=== PATIENT | female | born 1975 | race Caucasian/White ===

== ENCOUNTER 2023-01-13 09:40 | Inpatient (IN) | payer OTHER ==
[~2023-01-13] VITALS: Ht 171 cm; Wt 77.6 kg
[2023-01-13 10:31] LABS: BASOPHILS % (AUTO) 0.6 % (0.0-2.0); EOSINOPHILS # (AUTO) 0.1 K/uL (0-0.4); EOSINOPHILS % (AUTO) 1.8 % (0.0-4.0); HEMATOCRIT 41.3 % (36-48); HEMOGLOBIN 13.8 g/dL (12.0-16.0); LYMPHOCYTES # (AUTO) 1.4 K/uL (2.5-16.5); LYMPHOCYTES % (AUTO) 35.6 % (20.5-51.1); MEAN CORPUSCULAR HEMOGLOBIN 33 pg (27-31); MEAN CORPUSCULAR HGB CONC 33 g/dL (33-37); MEAN CORPUSCULAR VOLUME 97.9 fL (80-94); MONOCYTES # (AUTO) 0.3 K/uL (0.8-1.0); MONOCYTES % (AUTO) 7.6 % (1.7-9.3); NEUTROPHILS # (AUTO) 2.1 K/uL (1.8-7.7); NEUTROPHILS % (AUTO) 54.4 % (42.2-75.2); PLATELET COUNT (AUTO) 195 K/uL (140-450); RED BLOOD CELL COUNT(AUTO) 4.22 MIL/uL (4.20-5.40); RED CELL DISTRIBUTION WIDTH 13.2 % (11.6-13.7); WHITE BLOOD COUNT (AUTO) 3.8 K/uL (4.8-10.8)
[2023-01-13 10:49] LABS: ALBUMIN 4.2 g/dL (3.4-5.0); ANION GAP 9.2 (8-16); CARBON DIOXIDE 29.6 mmol/L (21-32); CREATININE 0.7 mg/dL (0.6-1.3); POTASSIUM 3.8 mmol/L (3.5-5.1); TOTAL BILIRUBIN 1.5 mg/dL (0.0-1.0)
[2023-01-13] MEDS ORDERED: diphenhydrAMINE 50 MG/ML VIAL IVP PRN ×2 (11:35→14:25)
[2023-01-13] MEDS ORDERED: LACTATED RINGERS 1,000 ML IV SCH (11:35)
[2023-01-13] MEDS ORDERED: ONDANSETRON 4 MG/2 ML VIAL IVP PRN ×2 (11:35→14:25)
[2023-01-13] MEDS ORDERED: MEPERIDINE 25 MG/ML SYR IVP PRN (11:35)
[2023-01-13] MEDS ORDERED: fentaNYL citrate 0.05 MG/ML VIAL ONE (11:39)
[2023-01-13] MEDS ORDERED: PROPOFOL 200 MG/20 ML VIAL IV ONE ×2 (11:39→12:00)
[2023-01-13] MEDS ORDERED: SUCCINYLCHOLINE CHLORIDE 200 MG/10 ML VIAL IVP ONE (11:39)
[2023-01-13] MEDS ORDERED: LIDOCAINE 1% 500 MG/50 ML VIAL ONE (11:44)
[2023-01-13] MEDS ORDERED: fentaNYL citrate 0.05 MG/ML - 50mL vial IV ONE (12:00)
[2023-01-13] MEDS ORDERED: MEPERIDINE 50 MG/ML SYR ONE ×2 (12:00→13:22)
[2023-01-13] MEDS ORDERED: ROCURONIUM 50 MG/5 ML VIAL IV ONE ×2 (12:00→12:34)
[2023-01-13] MEDS ORDERED: ceFAZolin 2,000 MG VIAL ONE (12:00)
[2023-01-13] MEDS ORDERED: METOCLOPRAMIDE 10 MG/2 ML INJ VIAL ONE (12:00)
[2023-01-13] MEDS ORDERED: SEVOFLURANE 250 ML BTL INH ONE (12:00)
[2023-01-13] MEDS ORDERED: SUGAMMADEX SODIUM 200 MG/2 ML VIAL IV ONE ×2 (12:00→14:08)
[2023-01-13] MEDS ORDERED: ONDANSETRON 4 MG/2 ML VIAL ONE (12:33)
[2023-01-13] MEDS ORDERED: MEPERIDINE 25 MG/ML SYR ONE (14:10)
[2023-01-13 15:42] VITALS: BP 121/70
--- NOTE | 2023-01-13 15:42 | NUR ---
PT ARRIVED TO [facility] VIA GURNEY. PT IS AOX4, ABLE TO VERBALIZE NEEDS. SKIN WARM AND DRY TO TOUCH. RESPIRATIONS EVEN AND UNLABORED ON RA. IV ON R HAND 20G INTACT AND PATENT. MARTE IN PLACE DRAINING TO GRAVITY. V/S TEMP 97.1, PULSE65, BP 121/70, RESPIRATIONS 16, O2 SATURATING AT 100%. CALL LIGHT WITHIN REACH, ALL SAFETY PRECAUTIONS IN PLACE.
--- NOTE | 2023-01-13 18:00 | NUR ---
REMOVED MARTE CATH.
--- NOTE | 2023-01-13 19:28 | NUR ---
ENDORSED PT TO BRICKLAYER APPRENTICE NURSE FOR CONTINUITY OF CARE. ALL NEEDS MET THROUGHOUT SHIFT. PT IN STABLE CONDITION.
[2023-01-13 20:00] VITALS: BP 110/60
--- NOTE | 2023-01-13 20:01 | NUR ---
RECEIVED REPORT FROM JANEL HIDALGO, PATIENT WAS STABLE DURING SHIFT REPORT. PATIENT WAS ALERT AND ORIENTED X 3. PATIENT STATED NAUSEA AND MILD DISCOMFORT. COVERING RN WAS NOTIFIED OF THE NEED FOR IV PUSH. PATIENT IS ON ROOM AIR. NO NOTED RESPIRATORY DISTRESS. CHEST IS RISING AND FALLING WITHOUT INCIDENT. CALL LIGHT IN REACH. [email or web address]
[2023-01-13] MEDS: HYDROmorphone 1 MG/ML AMP IVP PRN (21:38)
[2023-01-13] MEDS ORDERED: CYCLOBENZAPRINE 10 MG TAB PO SCH (23:05)
--- NOTE | 2023-01-13 23:27 | NUR ---
[id number] WAS GIVEN PAIN MANAGE MENT FOR THE ABDOMINAL PAIN BUT THEN COMPLAINED OF PAIN IN HER RIGHT LEG. MD WAS INFORMED AND GAVE ORDERS TO STOP IV FLUIDS AND GIVE MUSCLE RELAXER FOR THE LEG PAIN. [email or web address]
--- NOTE | 2023-01-14 01:18 | NUR ---
PAIN TO LEG HAS RESIDED. PATIENT IS IN HER BED RESTING WITHOUT PAIN. CALL LIGHT WITHIN REACH FOR ASSISTANCE. [email or web address]
[2023-01-14 04:00] VITALS: BP 97/52
--- NOTE | 2023-01-14 07:08 | NUR ---
ENDORSED PATIENT TO RUBINA RN (REGISTRY), PATIENT WAS STABLE AT THIS TIME. [email or web address]
--- NOTE | 2023-01-14 07:24 | NUR ---
receive the patient from the shift manager rn in rm 120A admitting diagnosis of hysterectomy aox4 . will continue to monitor
[2023-01-14] MEDS: HYDROmorphone 1 MG/ML AMP IVP PRN (08:54)
--- NOTE | 2023-01-14 09:30 | NUR ---
dilaudid was given due to abdominal pain from hysterectomy radiating to the right leg . will continue to monitor
--- NOTE | 2023-01-14 12:00 | NUR ---
patient was transfer admitted from being outpatient by md martinez . due to abdominal pain radiating to her right leg
--- NOTE | 2023-01-14 18:23 | NUR ---
will endorse to aparna carroll rn for continuity of care
--- NOTE | 2023-01-14 19:20 | NUR ---
PATIENT IN BED RESTING ON ROOM AIR. NO SOB NOTED. NO COMPLAINTS OF PAIN AT THIS TIME. IV SITE ON THE RIGHT HAND SALINE LOCK. CALL LIGHT IN REACH. SAFETY MEASURES IN PLACE.
[2023-01-14] MEDS: oxyCODONE/APAP 5/325 MG 1 TAB TAB PO PRN (21:29)
--- NOTE | 2023-01-14 21:29 | NUR ---
COMPLAINED OF SEVERE PAIN ON THE RIGHT LEG. MEDICATED.
--- NOTE | 2023-01-14 23:20 | NUR ---
PATIENT SLEEPING. NO S/S OF RESPIRATORY DISTRESS.
[2023-01-15] VITALS: BP 107/61
--- NOTE | 2023-01-15 07:25 | NUR ---
ENDORSED PATIENT TO DAY SHIFT NURSE FOR CONTINUITY OF CARE.
--- NOTE | 2023-01-15 07:26 | NUR ---
RECEIVED PT FROM PACKAGING SALES REPRESENTATIVE NURSE FOR CONTINUITY OF CARE. PT IN BED AWAKE AND ALERT X4. ABLE TO VERBALIZE NEEDS. RESPIRATIONS EVEN AND UNLABORED, NO DISTRESS NOTED. SKIN WARM AND DRY TO TOUCH. IV ON R HAND 20G SALINE LOCK. CALL LIGHT WITHIN REACH. ALL SAFETY PRECAUTIONS IN PLACE.
[2023-01-15 08:00] VITALS: BP 108/65
--- NOTE | 2023-01-15 08:42 | NUR ---
PT C/O PAIN 6/10 ON RIGHT LEG, ASSISTED PT WITH REPOSITION. PT MEDICATED.
[2023-01-15] MEDS: oxyCODONE/APAP 5/325 MG 1 TAB TAB PO PRN ×2 (08:43→16:43)
--- NOTE | 2023-01-15 08:49 | NUR ---
PATIENT HAS BEEN SCREENED AND CATEGORIZED MODERATE NUTRITION RISK. PATIENT WILL BE SEEN WITHIN 3-5 DAYS OF ADMISSION. 01/13/23-01/18/[address]
--- NOTE | 2023-01-15 11:15 | NUR ---
PT C/O PAIN ON R LEG STATES NO LASTING RELIEF FROM MEDICATION. INFORMED DR HERNADEZ, AWAITING RESPONSE.
--- NOTE | 2023-01-15 13:27 | NUR ---
PER DR HERNADEZ HE WILL BE SEEING PT TODAY.
[2023-01-15] MEDS: ENOXAPARIN 40 MG/0.4 ML SYR SUBQ SCH ×2 (14:16→21:00)
--- NOTE | 2023-01-15 14:16 | NUR ---
ADMINISTERED SCHEDULED LOVENOX. PT TOLERATED WELL.
--- NOTE | 2023-01-15 14:52 | NUR ---
PT AMBULATING NORMAL GAIT NOTED. PT WALKING WITH DAUGHTER AROUND UNIT.
[2023-01-15 16:00] VITALS: BP 114/70
--- NOTE | 2023-01-15 16:43 | NUR ---
PT C/O PAIN 6/10 ON R LEG. ADMINISTERED PAIN MED.
--- NOTE | 2023-01-15 17:43 | NUR ---
PAIN REASSESSED, PT STATES PAIN IS TOLERABLE AND MEDICATION HELPED.
--- NOTE | 2023-01-15 19:28 | NUR ---
ENDORSED PT TO PUTTY REMOVER NURSE FOR CONTINUITY OF CARE. PT IN STABLE CONDITION.
--- NOTE | 2023-01-15 21:00 | NUR ---
ADMINISTERED SCHEDULED MEDICATION.
[2023-01-16] VITALS: BP 114/69
[2023-01-16] MEDS: oxyCODONE/APAP 5/325 MG 1 TAB TAB PO PRN ×3 (02:11→16:51)
--- NOTE | 2023-01-16 06:04 | NUR ---
PATIENT AWAKE ALERT AND ORIENTED. ON ROOM AIR. AMBULATORY. NO SOB NOTED. NO COMPLAINTS OF PAIN AT THIS TIME. CALL LIGHT WITHIN REACH. WILL ENDORSE TO MORNING SHIFT FOR CONTINUITY OF CARE. PT IN STABLE CONDITION.
--- NOTE | 2023-01-16 07:15 | NUR ---
GAVE REPORT TO DAY SHIFT NURSE FOR CONTINUITY OF CARE. PATIENT IN STABLE CONDITION.
[2023-01-16 08:00] VITALS: BP 122/76
[2023-01-16] MEDS: ENOXAPARIN 40 MG/0.4 ML SYR SUBQ SCH ×2 (08:50→08:53)
--- NOTE | 2023-01-16 08:53 | NUR ---
PT REFUSED SCHEDULED LOVENOX STATES SHE WILL WAIT TO DISCUSS WITH DR. HUMPHREYS PT TEACHING, RISKS/BENEFITS. PT REFUSED.
[2023-01-16 16:00] VITALS: BP 119/71
[2023-01-16 18:42] VITALS: BP 119/71
--- NOTE | 2023-01-16 19:00 | NUR ---
PT WAS DISCHARGED PER DR HERNADEZ ORDERS. INFORMED PT TO FOLLOW UP WITH DR HERNADEZ. DC PACKET REVIEWED. PT VERBALIZED UNDERSTANDING. PT WHEELED [facility]. AMBULATED TO SIDE WALK AND GOT IN VEHICLE. PT IN STABLE CONDITION. DC TO HOME.
== END 2023-01-16 18:18 | disposition home or self-care (01) | DRG 519 ==
LOC: MDS 09:40 → MMU 09:42 → EDSTATUS 11:30 → MTU 16:21 → MDS 16:22 → MTU 01-16 19:00 → MDS 01-16 19:00
PROVIDERS: ADMIT Obstetrics & Gynecology; ATTEND Obstetrics & Gynecology
PROC: 0TSD4ZZ Reposition Urethra, Percutaneous Endoscopic Approach (ICD-10-PCS; 2023-01-13)
PROC: 0UT94ZZ Resection of Uterus, Percutaneous Endoscopic Approach (ICD-10-PCS; 2023-01-13)
PROC: 0UT74ZZ Resection of Bilateral Fallopian Tubes, Percutaneous Endoscopic Approach (ICD-10-PCS; principal; 2023-01-13 11:30)
DX: D25.1 Intramural leiomyoma of uterus (principal); D64.9 Anemia, unspecified; N95.1 Menopausal and female climacteric states; N39.3 Stress incontinence (female) (male); N81.11 Cystocele, midline; N36.41 Hypermobility of urethra; N92.0 Excessive and frequent menstruation with regular cycle; E03.9 Hypothyroidism, unspecified; N95.2 Postmenopausal atrophic vaginitis; Z20.822 Contact with and (suspected) exposure to COVID-19; Z30.2 Encounter for sterilization; M79.604 Pain in right leg
CPT/HCPCS: 36415; 72192; 80053; 84703; 85025; 86886; 86900; 86901; 87081; 88307; 93005; 93926; C1771; J0330; J1170; J1650; J2001; J2175; J2405; J2704; J2765; J3010; J3490; Q0092